=== PATIENT | male | born 1950 | race Caucasian/White ===

== ENCOUNTER 2018-02-12 23:58 | Emergency (ER) | payer MEDICARE, MEDICAID ==
[~2018-02-12] VITALS: Ht 154.9 cm; Wt 61.4 kg
[~2018-02-12 23:58] MED LIST: TNFMISC
[2018-02-13 02:05] VITALS: BP 129/87
== END 2018-02-13 02:15 | disposition home or self-care (01) ==
LOC: EMS 02-13
DX: S01.112A Laceration without foreign body of left eyelid and periocular area, initial encounter (principal); S50.812A Abrasion of left forearm, initial encounter; F17.210 Nicotine dependence, cigarettes, uncomplicated; Z86.73 Personal history of transient ischemic attack (TIA), and cerebral infarction without residual deficits; W18.30XA Fall on same level, unspecified, initial encounter; Y93.I9 Activity, other involving external motion; Y92.811 Bus as the place of occurrence of the external cause; Y99.8 Other external cause status
CPT/HCPCS: 70450; 72125